=== PATIENT | male | born 1965 | race Caucasian/White ===

== ENCOUNTER 2017-06-29 23:28 | Emergency (ER) | payer OTHER, SELFPAY ==
--- NOTE | 2017-06-29 23:48 | ERPHSYRPT ---
- History of Present Illness Time Seen by Provider: 06/29/17 23:35 Historian: patient, family (DAUGHTER) Exam Limitations: no limitations Physician History: FIVE DAYS AGO PT HAD A 99.9 DEGREE FEVER. TODAY PT STARTED WITH DULL LOWER ABDOMINAL PAIN AND VOMITING X~ 20 WITH SOME BLOOD IN THE EMESIS. LAST BM WAS YESTERDAY & WNL. PT DENIES CHEST PAIN, SHORTNESS OF AIR, SWELLING. PT HAS A HX OF BLEEDING ULCERS PER DAUGHTER AND A CHRONIC NON-PRODUCTIVE COUGH FOR YEARS. Allergies/Adverse Reactions: No Known Drug Allergies Allergy (Verified 06/29/17 23:53) Home Medications: Omeprazole 20 MG [Prilosec 20 mg] 20 mg PO DAILY 06/05/13 [History] Hx Tetanus, Diphtheria Vaccination/Date Given: Yes Hx Influenza Vaccination/Date Given: No Hx Pneumococcal Vaccination/Date Given: No - Review of Systems Constitutional: Fever Respiratory: Cough Abdominal/Gastrointestinal: Abdominal Pain, Vomiting, Hematemesis All Other Systems: Reviewed and Negative - Past Medical History Pertinent Past Medical History: Yes Neurological History: No Pertinent History ENT History: No Pertinent History Cardiac History: No Pertinent History Respiratory History: No Pertinent History Endocrine Medical History: No Pertinent History Musculoskeletal History: No Pertinent History GI Medical History: Ulcer History: No Pertinent History Psycho-Social History: No Pertinent History Male Reproductive Disorders: No Pertinent History Other Medical History: ULCERS - Past Surgical History Past Surgical History: No (no abdominal surgeries) Neuro Surgical History: No Pertinent History Cardiac: No Pertinent History Respiratory: No Pertinent History Gastrointestinal: No Pertinent History Genitourinary: No Pertinent History Musculoskeletal: No Pertinent History Male Surgical History: No Pertinent History - Social History Smoking Status: Current every day smoker How long have you smoked: years Exposure to second hand smoke: No Drug Use: marijuana Patient Lives Alone: No - Nursing Vital Signs Nursing Vital Signs: Initial Vital Signs Temperature 97.8 F 06/29/17 23:41 Pulse Rate 77 06/29/17 23:41 Respiratory Rate 18 06/29/17 23:41 Blood Pressure 179/111 06/29/17 23:41 O2 Sat by Pulse Oximetry 97 06/29/17 23:41 Pain Scale Pain Intensity 2 - Physical Exam General Appearance: other (MILD MALAISE) Eye Exam: PERRL/EOMI Ears, Nose, Throat Exam: TM abnormal (L) (LEFT TM ERYTHEMATOUS), pharyngeal erythema Neck Exam: normal inspection Respiratory Exam: lungs clear Cardiovascular Exam: normal heart sounds Gastrointestinal/Abdomen Exam: soft, other (B.S. MILDLY HYPERACTIVE AND NORMOTONIC) Rectal Exam: normal rectal tone, other (DARK STOOL) Back Exam: normal range of motion Extremity Exam: normal inspection, No pedal edema Neurologic Exam: cooperative Skin Exam: warm, dry SpO2 Interpretation: normal SpO2: 97 Oxygen Delivery: Room Air - Course Nursing assessment & vital signs reviewed: Yes - CT Exams Abdomen/Pelvis CT Interpretation: Tele-radiologist Report (EVIDENCE OF INTRALUMINAL HEMORRHAGE WITHIN THE FIRST AND SECOND PORTIONS OF THE DUODENUM. CHOLELITHIASIS. LEFT RENAL CYST.) Ordered Tests: Active Orders 24 hr Category Date Time Status Clean Catch Urine Specimen STAT Care 06/29/17 23:43 Active IV Insertion STAT Care 06/29/17 23:43 Active ABDOMEN AND PELVIS W/0 CONTRAS [CT] Stat Exams 06/29/17 23:44 Taken Lactic Acid Stat Lab 06/29/17 23:43 Completed UA W/RFX UR CULTURE Stat Lab 06/29/17 23:44 Ordered Urine Triage Profile Stat Lab 06/29/17 23:44 Ordered Medication Summary Discontinued Medications Generic Name Dose Route Start Last Admin Trade Name Freq PRN Reason Stop Dose Admin Fentanyl Citrate 50 mcg 06/29/17 23:43 06/30/17 00:10 Sublimaze 100 Mcg/2 Ml IV 06/29/17 23:44 50 mcg STAT ONE Administration Fentanyl Citrate Confirm 06/29/17 23:58 Sublimaze 100 Mcg/2 Ml Administered 06/29/17 23:59 Dose 100 mcg .ROUTE .STK-MED ONE Sodium Chloride 1,000 mls @ 999 mls/hr 06/29/17 23:43 06/30/17 00:10 Sodium Chloride 0.9% 1000 Ml IV 06/30/17 00:43 999 mls/hr .Q1H1M STA Administration Sodium Chloride Confirm 06/29/17 23:58 Sodium Chloride 0.9% 1000 Ml Administered 06/29/17 23:59 Dose 1,000 mls @ ud .ROUTE .STK-MED ONE Ceftriaxone Sodium/Dextrose 1 g in 50 mls @ 100 mls/hr 06/30/17 01:14 01:36 Rocephin 1 Gm-D5w 50 Ml Bag IV 06/30/17 01:43 100 mls/hr STAT STA Administration Magnesium Sulfate/Dextrose 100 mls @ 200 mls/hr 06/30/17 01:19 06/30/17 01:36 Magnesium 1 Gm / 100 Ml D5w IV 06/30/17 01:48 200 mls/hr STAT ONE Administration Magnesium Sulfate/Dextrose Confirm 06/30/17 01:23 Magnesium 1 Gm / 100 Ml D5w Administered 06/30/17 01:24 Dose 100 mls @ ud IV .STK-MED ONE Ceftriaxone Sodium/Dextrose Confirm 06/30/17 01:24 Rocephin 1 Gm-D5w 50 Ml Bag Administered 06/30/17 01:25 Dose 1 g in 50 mls @ ud IV .STK-MED ONE Sodium Chloride Confirm 06/30/17 01:26 Sodium Chloride 0.9% 1000 Ml Administered 06/30/17 01:27 Dose 1,000 mls @ ud .ROUTE .STK-MED ONE Pantoprazole Sodium 40 mg 06/29/17 23:43 06/30/17 00:22 Protonix 40mg Tablet PO 06/29/17 23:44 Not Given STAT ONE Pantoprazole Sodium 40 mg 06/29/17 23:57 06/30/17 00:09 Protonix 40 Mg Iv IV 06/29/17 23:58 40 mg STAT ONE Administration Pantoprazole Sodium Confirm 06/29/17 23:58 Protonix 40 Mg Iv Administered 06/29/17 23:59 Dose 40 mg IV .STK-MED ONE Promethazine HCl 12.5 mg 06/29/17 23:43 06/30/17 00:09 Phenergan 25 Mg Inj IV 06/29/17 23:44 12.5 mg STAT ONE Administration Promethazine HCl Confirm 06/29/17 23:58 Phenergan 25 Mg Inj Administered 06/29/17 23:59 Dose 25 mg .ROUTE .STK-MED ONE Lab/Rad Data: Laboratory Result Diagrams 06/29/17 00:00 06/29/17 00:00 Laboratory Results 06/30/17 06/29/17 06/29/17 Range/Units 00:14 00:38 00:17 WBC (4.0-10.5) K/mm3 RBC (4.1-5.6) M/mm3 Hgb (12.5-18.0) gm/dl Hct (42-50) % MCV (78-100) fl MCH (26-32) pg MCHC (32-36) g/dl RDW (11.5-14.0) % Plt Count (150-450) K/mm3 MPV (6-9.5) fl Gran % (36.0-66.0) % Lymphocytes % (24.0-44.0) % Monocytes % (0.0-12.0) % Eosinophils % (0.00-5.0) % Basophils % (0.0-0.4) % Basophils # (0-0.4) INR (0.8-3.0) APTT (24.1-36.1) SECONDS Sodium (136-145) mEq/L Potassium (3.5-5.1) mEq/L Chloride (98-107) mEq/L Carbon Dioxide (21-32) mEq/L Anion Gap (5-15) MEQ/L BUN (9-20) mg/dL Creatinine (0.55-1.30) mg/dl Estimated GFR ML/MIN Glucose (70-110) MG/DL Lactic Acid 1.3 (0.4-2.0) Calcium (8.5-10.1) mg/dL Magnesium (1.8-2.4) mg/dL Total Bilirubin (0.2-1.0) mg/dL AST (15-37) U/L ALT (12-78) U/L Alkaline Phosphatase (46-116) U/L Serum Total Protein (6.4-8.2) gm/dL Albumin (3.4-5.0) g/dL Amylase (25-115) U/L Lipase (73-393) U/L Stool Occult Blood POSITIVE (Negative) Ethyl Alcohol (0.00-0.01) % Monoscreen (Negative) Influenza Type A Ag NEGATIVE (NEGATIVE) Influenza Type B Ag NEGATIVE (NEGATIVE) RSV (PCR) NEGATIVE (Negative) Streptococcus Screen (Negative) ABO Group Rh Factor Antibody Screen (NEGATIVE) 06/29/17 06/29/17 06/29/17 Range/Units 00:17 00:00 00:00 WBC (4.0-10.5) K/mm3 RBC (4.1-5.6) M/mm3 Hgb (12.5-18.0) gm/dl Hct (42-50) % MCV (78-100) fl MCH (26-32) pg MCHC (32-36) g/dl RDW (11.5-14.0) % Plt Count (150-450) K/mm3 MPV (6-9.5) fl Gran % (36.0-66.0) % Lymphocytes % (24.0-44.0) % Monocytes % (0.0-12.0) % Eosinophils % (0.00-5.0) % Basophils % (0.0-0.4) % Basophils # (0-0.4) INR (0.8-3.0) APTT (24.1-36.1) SECONDS Sodium (136-145) mEq/L Potassium (3.5-5.1) mEq/L Chloride (98-107) mEq/L Carbon Dioxide (21-32) mEq/L Anion Gap (5-15) MEQ/L BUN (9-20) mg/dL Creatinine (0.55-1.30) mg/dl Estimated GFR ML/MIN Glucose (70-110) MG/DL Lactic Acid (0.4-2.0) Calcium (8.5-10.1) mg/dL Magnesium (1.8-2.4) mg/dL Total Bilirubin (0.2-1.0) mg/dL AST (15-37) U/L ALT (12-78) U/L Alkaline Phosphatase (46-116) U/L Serum Total Protein (6.4-8.2) gm/dL Albumin (3.4-5.0) g/dL Amylase (25-115) U/L Lipase (73-393) U/L Stool Occult Blood (Negative) Ethyl Alcohol < 0.010 (0.00-0.01) % Monoscreen NEGATIVE (Negative) Influenza Type A Ag (NEGATIVE) Influenza Type B Ag (NEGATIVE) RSV (PCR) (Negative) Streptococcus Screen NEGATIVE (Negative) ABO Group Rh Factor Antibody Screen (NEGATIVE) 06/29/17 06/29/17 06/29/17 Range/Units 00:00 00:00 00:00 WBC (4.0-10.5) K/mm3 RBC (4.1-5.6) M/mm3 Hgb (12.5-18.0) gm/dl Hct (42-50) % MCV (78-100) fl MCH (26-32) pg MCHC (32-36) g/dl RDW (11.5-14.0) % Plt Count (150-450) K/mm3 MPV (6-9.5) fl Gran % (36.0-66.0) % Lymphocytes % (24.0-44.0) % Monocytes % (0.0-12.0) % Eosinophils % (0.00-5.0) % Basophils % (0.0-0.4) % Basophils # (0-0.4) INR 1.03 (0.8-3.0) APTT 30.1 (24.1-36.1) SECONDS Sodium (136-145) mEq/L Potassium (3.5-5.1) mEq/L Chloride (98-107) mEq/L Carbon Dioxide (21-32) mEq/L Anion Gap (5-15) MEQ/L BUN (9-20) mg/dL Creatinine (0.55-1.30) mg/dl Estimated GFR ML/MIN Glucose (70-110) MG/DL Lactic Acid (0.4-2.0) Calcium (8.5-10.1) mg/dL Magnesium 1.7 L (1.8-2.4) mg/dL Total Bilirubin (0.2-1.0) mg/dL AST (15-37) U/L ALT (12-78) U/L Alkaline Phosphatase (46-116) U/L Serum Total Protein (6.4-8.2) gm/dL Albumin (3.4-5.0) g/dL Amylase (25-115) U/L Lipase (73-393) U/L Stool Occult Blood (Negative) Ethyl Alcohol (0.00-0.01) % Monoscreen (Negative) Influenza Type A Ag (NEGATIVE) Influenza Type B Ag (NEGATIVE) RSV (PCR) (Negative) Streptococcus Screen (Negative) ABO Group O Rh Factor POSITIVE Antibody Screen NEGATIVE (NEGATIVE) 06/29/17 06/29/17 Range/Units 00:00 00:00 WBC 12.8 H (4.0-10.5) K/mm3 RBC 5.15 (4.1-5.6) M/mm3 Hgb 14.5 (12.5-18.0) gm/dl Hct 42.6 (42-50) % MCV 82.7 (78-100) fl MCH 28.2 (26-32) pg MCHC 34.0 (32-36) g/dl RDW 13.1 (11.5-14.0) % Plt Count 337 (150-450) K/mm3 MPV 10.2 H (6-9.5) fl Gran % 90.1 H (36.0-66.0) % Lymphocytes % 6.6 L (24.0-44.0) % Monocytes % 2.9 (0.0-12.0) % Eosinophils % 0.1 (0.00-5.0) % Basophils % 0.3 (0.0-0.4) % Basophils # 0.04 (0-0.4) INR (0.8-3.0) APTT (24.1-36.1) SECONDS Sodium 140 (136-145) mEq/L Potassium 4.0 (3.5-5.1) mEq/L Chloride 105 (98-107) mEq/L Carbon Dioxide 25.7 (21-32) mEq/L Anion Gap 13.4 (5-15) MEQ/L BUN 29 H (9-20) mg/dL Creatinine 1.17 (0.55-1.30) mg/dl Estimated GFR > 60 ML/MIN Glucose 162 H (70-110) MG/DL Lactic Acid (0.4-2.0) Calcium 9.2 (8.5-10.1) mg/dL Magnesium (1.8-2.4) mg/dL Total Bilirubin 0.50 (0.2-1.0) mg/dL AST 13 L (15-37) U/L ALT 25 (12-78) U/L Alkaline Phosphatase 68 (46-116) U/L Serum Total Protein 6.6 (6.4-8.2) gm/dL Albumin 3.2 L (3.4-5.0) g/dL Amylase 58 (25-115) U/L Lipase 210 (73-393) U/L Stool Occult Blood (Negative) Ethyl Alcohol (0.00-0.01) % Monoscreen (Negative) Influenza Type A Ag (NEGATIVE) Influenza Type B Ag (NEGATIVE) RSV (PCR) (Negative) Streptococcus Screen (Negative) ABO Group Rh Factor Antibody Screen (NEGATIVE) - Progress Discussed with Dr.: Other (SPOKE WITH DR TORRES([id number]) WHO ACCEPTED PT FOR TRANSFER TO [facility] AT 0147 AFTER CONSULTING THE HOSPITALIST.) - Departure Time of Disposition: 01:53 Departure Disposition: Transfer ([facility]) Clinical Impression: DUODENAL HEMORRHAGE, MILD HYPOMAGNESEMIA Condition: Stable Critical Care Time: Yes Critical Care Time(excluding separately billable procedures): 30-74 minutes Referrals: WENDI PERKINS MD [Primary Care Provider] -
[2017-06-29] MEDS ORDERED: Phenergan 25 MG INJ ONE (23:58)
[2017-06-29] MEDS ORDERED: PROTONIX 40 MG IV IV ONE (23:58)
[2017-06-29] MEDS ORDERED: Sodium Chloride 0.9% 1000 ML 1,000 ML ONE (23:58)
[2017-06-29] MEDS ORDERED: SUBLIMAZE 100 MCG/2 ML ONE (23:58)
[2017-06-30] MEDS: Phenergan 25 MG INJ IV ONE (00:09)
[2017-06-30] MEDS: PROTONIX 40 MG IV IV ONE (00:09)
[2017-06-30] MEDS: Sodium Chloride 0.9% 1000 ML 1,000 ML IV STA (00:10)
[2017-06-30] MEDS: SUBLIMAZE 100 MCG/2 ML IV ONE (00:10)
[2017-06-30] MEDS: Protonix 40MG Tablet PO ONE (00:22)
[2017-06-30 00:23] LABS: BASOPHIL % 0.3 % (0.0-0.4); Basophil (Absolute #) 0.04 (0-0.4); Eosinophil % 0.1 % (0.00-5.0); Eosinophil (Absolute #) 0.01 (0-0.5); Granulocyte Absolute (ANC) 11.57 (1.4-6.9); Granulocytes % 90.1 % (36.0-66.0); Hematocrit 42.6 % (42-50); Hemoglobin 14.5 gm/dl (12.5-18.0); Lymphocyte (Absolute #) 0.85 (1.0-4.6); Lymphocytes % 6.6 % (24.0-44.0); Mean Cell Volume 82.7 fl (78-100); Mean Corpuscular Hemoglobin 28.2 pg (26-32); Mean Platelet Volume 10.2 fl (6-9.5); Monocyte (Absolute #) 0.37 (0.0-1.3); Monocytes % 2.9 % (0.0-12.0); Platelet Count 337 K/mm3 (150-450); Red Blood Count 5.15 M/mm3 (4.1-5.6); Red Cell Distribution Width 13.1 % (11.5-14.0); White Blood Count 12.8 K/mm3 (4.0-10.5)
[2017-06-30 00:42] LABS: ALBUMIN 3.2 g/dL (3.4-5.0); ALKALINE PHOSPHATASE 68 U/L (46-116); AMYLASE 58 U/L (25-115); ANION GAP 13.4 MEQ/L (5-15); BLOOD UREA NITROGEN 29 mg/dL (9-20); CHLORIDE 105 mEq/L (98-107); Calcium 9.2 mg/dL (8.5-10.1); Carbon Dioxide 25.7 mEq/L (21-32); Creatinine 1 1.17 mg/dl (0.55-1.30); EST GLOMERULAR FILTRATION RATE > 60 ML/MIN; Glucose 162 MG/DL (70-110); INR 1.03 (0.8-3.0); LIPASE 210 U/L (73-393); SGOT/AST 13 U/L (15-37); SGPT/ALT 25 U/L (12-78); SODIUM 140 mEq/L (136-145); Total Protein 6.6 gm/dL (6.4-8.2)
[2017-06-30 00:45] LABS: PTT 30.1 SECONDS (24.1-36.1)
[2017-06-30 01:06] LABS: ABO TYPING O; Antibody Screen NEGATIVE (NEGATIVE); RH TYPING POSITIVE
[2017-06-30] MEDS ORDERED: Magnesium 1 Gm / 100 Ml D5W*** 100 ML IV ONE (01:23)
[2017-06-30] MEDS ORDERED: ROCEPHIN 1 Gm-D5w 50 ml Bag** 1 G/50 ML IVPB IV ONE (01:24)
[2017-06-30] MEDS ORDERED: Sodium Chloride 0.9% 1000 ML 1,000 ML ONE (01:26)
[2017-06-30 01:29] LABS: INFLUENZA A NEGATIVE (NEGATIVE); INFLUENZA B NEGATIVE (NEGATIVE); RESPIRATORY SYNCTIAL VIRUS NEGATIVE (Negative)
[2017-06-30] MEDS: ROCEPHIN 1 Gm-D5w 50 ml Bag** 1 G/50 ML IVPB IV STA (01:36)
[2017-06-30] MEDS: Magnesium 1 Gm / 100 Ml D5W*** 100 ML IV ONE (01:36)
[2017-06-30 02:25] VITALS: BP 172/103
[2017-06-30 03:42] VITALS: PULSE 68; O2SAT 99
--- NOTE | 2017-06-30 09:00 | XRAY ---
Indication: Abdominal pain and vomiting blood 2 days. Positive occult stool. Multiple contiguous axial images obtained through the abdomen and pelvis without contrast as ordered. Comparison: June 05, 2013. Lung bases demonstrate minimal right base dependent atelectasis. No infiltrate or effusion. Heart is not enlarged. Noncontrasted stomach and bowel loops appear nonobstructed. Proximal/descending duodenum now mildly distended with wall thickening and subtle intraluminal dense material probable duodenitis with intraluminal blood. No free fluid/air. Normal appendix. Stable left renal cyst. New tiny 2 mm gallstone. Remaining liver, gallbladder, pancreas, spleen, adrenal glands, kidneys, ureters, bladder, and aorta appear unremarkable for noncontrast exam. Osseous structures intact again with minimal degenerative changes throughout the spine. Impression: 1. New CT findings favoring duodenitis with intraluminal blood. No free fluid/air. 2. New tiny gallstone. 3. Stable left renal cyst. Comment: Preliminary interpretation was made by C. No discrepancy. CTDI 23.69
== END 2017-06-30 01:53 | disposition short-term general hospital (02) ==
LOC: ED 23:28
DX: K92.2 Gastrointestinal hemorrhage, unspecified (principal); E83.42 Hypomagnesemia; R53.81 Other malaise; Z72.0 Tobacco use; Z79.899 Other long term (current) drug therapy
CPT/HCPCS: 36000; 36415; 74176; 80053; 82150; 82272; 83605; 83690; 83735; 85025; 85610; 85730; 86308; 86850; 86900; 86901; 87040; 87070; 87430; 87631; 96360; 96365; 96374; 96375; 99284; G0480; J0696; J2550; J3010; J3475

== ENCOUNTER 2018-03-15 04:47 | Observation (INO) | payer OTHER ==
[2018-03-15] MEDS ORDERED: DUONEB 0.5-3 MG/3 ml Neb IH ONE ×2 (04:56→05:03)
[2018-03-15] MEDS ORDERED: solu-MEDROL 125 MG IV ONE (04:56)
[2018-03-15] MEDS ORDERED: Sodium Chloride 0.9% 1000 ML 1,000 ML ONE (05:10)
[2018-03-15] MEDS ORDERED: solu-MEDROL 125 MG ONE (05:10)
[2018-03-15] MEDS: Sodium Chloride 0.9% 1000 ML 1,000 ML IV SCH ×3 (05:15→21:47)
[2018-03-15] MEDS ORDERED: Ativan 2 MG/1 ML VIAL ONE (05:31)
[2018-03-15 05:32] LABS: BASOPHIL % 0.8 % (0.0-0.4); Basophil (Absolute #) 0.07 (0-0.4); Eosinophil % 6.2 % (0.00-5.0); Eosinophil (Absolute #) 0.56 (0-0.5); Granulocyte Absolute (ANC) 5.78 (1.4-6.9); Granulocytes % 64.4 % (36.0-66.0); Hematocrit 35.1 % (42-50); Hemoglobin 11.6 gm/dl (12.5-18.0); Lymphocyte (Absolute #) 1.98 (1.0-4.6); Mean Corpuscular Hemoglobin 25.1 pg (26-32); Mean Platelet Volume 10.1 fl (6-9.5); Monocyte (Absolute #) 0.59 (0.0-1.3); Monocytes % 6.6 % (0.0-12.0); Platelet Count 259 K/mm3 (150-450); Red Blood Count 4.62 M/mm3 (4.1-5.6); Red Cell Distribution Width 16.2 % (11.5-14.0)
[2018-03-15 06:12] LABS: ALBUMIN 3.3 g/dL (3.5-5.0); ALKALINE PHOSPHATASE 48 U/L (38-126); ANION GAP 14.4 MEQ/L (5-15); BLOOD UREA NITROGEN 16 mg/dL (9-20); CHLORIDE 104 mmol/L (98-107); Calcium 8.9 mg/dL (8.4-10.2); Carbon Dioxide 20 mmol/L (22-30); Creatinine 1 1.03 mg/dL (0.66-1.25); Glucose 127 mg/dL (74-106); Potassium 3.4 mmol/L (3.5-5.1); SGOT/AST 26 U/L (17-59); SGPT/ALT 22 U/L (0-50); SODIUM 135 mmol/L (137-145); Total Protein 5.7 g/dL (6.3-8.2)
[2018-03-15 06:21] LABS: Appearance CLEAR (CLEAR); Bilirubin NEGATIVE (NEGATIVE); Blood NEGATIVE Ery/ul (0-5); Glucose NEGATIVE (NEGATIVE); Ketones TRACE (NEGATIVE); Leukocyte Esterase NEGATIVE (NEGATIVE); Nitrite NEGATIVE (NEGATIVE); Protein,Urine Dip NEGATIVE (Negative); Specific Gravity 1.008 (1.005-1.025); Urobilinogen 4 mg/dL (0-1)
[2018-03-15 06:21] LABS: TROPONIN < 0.012 ng/mL (0.000-0.034)
[2018-03-15 06:23] LABS: Barbiturate,Urine NEGATIVE (NEGATIVE); Benzodiazepine,Urine NEGATIVE (NEGATIVE); Cocaine,Urine NEGATIVE (NEGATIVE); Methadone,Urine NEGATIVE (NEGATIVE); Opiate,Urine NEGATIVE (NEGATIVE); PCP,Urine NEGATIVE (NEGATIVE); THC,Urine POSITIVE (NEGATIVE)
[2018-03-15] MEDS ORDERED: Ativan 2 MG/1 ML VIAL IV ONE (06:50)
[2018-03-15] MEDS ORDERED: K-LYTE 25 MEQ PO ONE (06:50)
--- NOTE | 2018-03-15 06:50 | ERPHSYRPT ---
- History of Present Illness Source: patient Exam Limitations: no limitations Patient Subjective Stated Complaint: pt states he has been short of breath tonight. Triage Nursing Assessment: pt alert and oriented x4, answers questions approp. slurred speech noted. pt short of breath, taking deep breaths and frequent coughing exhalation noted. lungs clear bilat. pt kicking legs frequ[place]ty land states he is not able to keeps legs still. Timing/Duration: today Activities at Onset: none Possible Cause: frequent episodes Associated Symptoms: muscle spasms feet Hx Tetanus, Diphtheria Vaccination/Date Given: Yes Hx Influenza Vaccination/Date Given: No Hx Pneumococcal Vaccination/Date Given: No Immunizations Up to Date: Yes - History of Present Illness Time Seen by Provider: 03/15/18 06:45 Physician History: pt states he has been short of breath tonight, started early night. kicking legs frequ[place]ty land states he is not able to keeps legs still. (SUHAIL, BROWN) Allergies/Adverse Reactions: No Known Drug Allergies Allergy (Verified 03/15/18 05:17) Home Medications: Omeprazole 20 MG [Prilosec 20 mg] 20 mg PO DAILY 06/05/13 [History] - Review of Systems Constitutional: No Fever, No Chills Eyes: No Symptoms Ears, Nose, & Throat: No Symptoms Respiratory: Dyspnea, Wheezing, No Cough Cardiac: No Chest Pain, No Edema, No Syncope Abdominal/Gastrointestinal: No Abdominal Pain, No Nausea, No Vomiting, No Diarrhea Genitourinary Symptoms: No Dysuria Musculoskeletal: No Back Pain, No Neck Pain Skin: No Rash Neurological: No Dizziness, No Focal Weakness, No Sensory Changes Psychological: No Symptoms Endocrine: No Symptoms All Other Systems: Reviewed and Negative - Past Medical History Pertinent Past Medical History: Yes Neurological History: No Pertinent History ENT History: No Pertinent History Cardiac History: No Pertinent History Respiratory History: No Pertinent History Endocrine Medical History: No Pertinent History Musculoskeletal History: No Pertinent History GI Medical History: Ulcer History: No Pertinent History Psycho-Social History: No Pertinent History Male Reproductive Disorders: No Pertinent History Other Medical History: ULCERS - Past Surgical History Past Surgical History: No Neuro Surgical History: No Pertinent History Cardiac: No Pertinent History Respiratory: No Pertinent History Gastrointestinal: No Pertinent History Genitourinary: No Pertinent History Musculoskeletal: No Pertinent History Male Surgical History: No Pertinent History - Social History Smoking Status: Current every day smoker How long have you smoked: years Exposure to second hand smoke: No Drug Use: marijuana Patient Lives Alone: Yes - Physical Exam General Appearance: no apparent distress, alert Eye Exam: PERRL/EOMI Neck Exam: normal inspection, supple Respiratory Exam: diminished breath sounds, wheezing Cardiovascular/Chest Exam: normal heart sounds, regular rate/rhythm Abdominal/Gastrointestinal Exam: soft, No tenderness, No distention, No mass Extremity Exam: non-tender, normal range of motion, normal inspection, no calf tenderness, no pedal edema Neurologic Exam: alert, oriented x 3, cooperative, 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, sensation nml, No motor deficits Skin Exam: normal color, warm, No dry SpO2 Interpretation: borderline oxygenation SpO2: 94 Oxygen Delivery: Room Air - Nursing Vital Signs Nursing Vital Signs: Initial Vital Signs Temperature 97.6 F 03/15/18 04:50 Pulse Rate 95 H 03/15/18 04:50 Respiratory Rate 22 03/15/18 04:50 Blood Pressure 109/79 03/15/18 04:50 O2 Sat by Pulse Oximetry 99 03/15/18 04:50 Pain Scale Pain Intensity 0 - Course Nursing assessment & vital signs reviewed: Yes EKG Interpreted by Me: Sinus Rhythm - Radiology Exams Chest X-ray Interpretation: Reviewed by me (COPD changes) Ordered Tests: Active Orders 24 hr Category Date Time Status CO2 Monitoring STAT Care 03/15/18 04:56 Active Assessor STAT Care 03/15/18 04:57 Active Cath for Specimen-Straight STAT Care 03/15/18 05:50 Active EKG-ER Only STAT Care 03/15/18 04:56 Active Oxygen-ED Only NASAL CANNULA 2 lpm Care 03/15/18 04:56 Active CHEST 1 VIEW (PORTABLE) Stat Exams 03/15/18 04:57 Taken HEAD WITHOUT CONTRAST [CT] Stat Exams 03/15/18 08:16 Taken BLOOD CULTURE Stat Lab 03/15/18 10:04 Ordered CBC W DIFF Stat Lab 03/15/18 04:56 Completed CMP Stat Lab 03/15/18 04:56 Completed ETHYL ALCOHOL Stat Lab 03/15/18 04:56 Completed TROPONIN Stat Lab 03/15/18 04:56 Completed UA W/RFX UR CULTURE Stat Lab 03/15/18 05:46 Completed Urine Triage Profile Stat Lab 03/15/18 05:46 Completed Respiratory Therapy Assessment DAILY RT 03/15/18 05:15 Active Medication Summary Generic Name Dose Route Start Last Admin Trade Name Freq PRN Reason Stop Dose Admin Sodium Chloride 1,000 mls @ 100 mls/hr 03/15/18 05:00 03/15/18 05:15 Sodium Chloride 0.9% 1000 Ml IV 04/14/18 04:59 100 mls/hr .Q10H KATI Administration Levofloxacin/Dextrose 500 mg in 100 mls @ 100 mls/hr 03/15/18 10:05 03/15/18 10:13 Levofloxacin 500mg/100ml D5w IV 03/15/18 11:04 100 mls/hr STAT STA 100 mls/hr Administration Discontinued Medications Generic Name Dose Route Start Last Admin Trade Name Freq PRN Reason Stop Dose Admin Albuterol/Ipratropium 3 ml 03/15/18 04:56 03/15/18 05:06 Duoneb 0.5-3 Mg/3 Ml Neb IH 03/15/18 04:57 3 ml STAT ONE Administration Albuterol/Ipratropium Confirm 03/15/18 05:03 Duoneb 0.5-3 Mg/3 Ml Neb Administered 03/15/18 05:04 Dose 3 ml IH .STK-MED ONE Levofloxacin/Dextrose Confirm 03/15/18 10:12 Levofloxacin 500mg/100ml D5w Administered 03/15/18 10:13 Dose 500 mg in 100 mls @ ud IV .STK-MED ONE Lorazepam Confirm 03/15/18 05:31 Ativan 2 Mg/1 Ml Vial Administered 03/15/18 05:32 Dose 2 mg .ROUTE .STK-MED ONE Lorazepam 2 mg 03/15/18 06:50 03/15/18 05:30 Ativan 2 Mg/1 Ml Vial IV 03/15/18 06:51 2 mg STAT ONE Administration Methylprednisolone Sodium Succinate 80 mg 03/15/18 04:56 03/15/18 05:11 Solu-Medrol 125 Mg IV 03/15/18 04:57 80 mg STAT ONE Administration Methylprednisolone Sodium Succinate Confirm 03/15/18 05:10 Solu-Medrol 125 Mg Administered 03/15/18 05:11 Dose 125 mg .ROUTE .STK-MED ONE Potassium Bicarbonate 25 meq 03/15/18 06:50 03/15/18 06:54 K-Lyte 25 Meq PO 03/15/18 06:51 25 meq STAT ONE Administration Potassium Bicarbonate Confirm 03/15/18 06:52 K-Lyte 25 Meq Administered 03/15/18 06:53 Dose 25 meq .ROUTE .STK-MED ONE Lab/Rad Data: Laboratory Result Diagrams 03/15/18 04:56 03/15/18 04:56 Laboratory Results 03/15/18 03/15/18 03/15/18 Range/Units 05:46 05:46 04:56 WBC (4.0-10.5) K/mm3 RBC (4.1-5.6) M/mm3 Hgb (12.5-18.0) gm/dl Hct (42-50) % MCV (78-100) fl MCH (26-32) pg MCHC (32-36) g/dl RDW (11.5-14.0) % Plt Count (150-450) K/mm3 MPV (6-9.5) fl Gran % (36.0-66.0) % Eos # (Auto) (0-0.5) Absolute Lymphs (auto) (1.0-4.6) Absolute Monos (auto) (0.0-1.3) Lymphocytes % (24.0-44.0) % Monocytes % (0.0-12.0) % Eosinophils % (0.00-5.0) % Basophils % (0.0-0.4) % Absolute Granulocytes (1.4-6.9) Basophils # (0-0.4) Sodium (137-145) mmol/L Potassium (3.5-5.1) mmol/L Chloride (98-107) mmol/L Carbon Dioxide (22-30) mmol/L Anion Gap (5-15) MEQ/L BUN (9-20) mg/dL Creatinine (0.66-1.25) mg/dL Estimated GFR ML/MIN Glucose (74-106) mg/dL Calcium (8.4-10.2) mg/dL Total Bilirubin (0.2-1.3) mg/dL AST (17-59) U/L ALT (0-50) U/L Alkaline Phosphatase (38-126) U/L Troponin I (0.000-0.034) ng/mL Serum Total Protein (6.3-8.2) g/dL Albumin (3.5-5.0) g/dL Urine Color YELLOW (YELLOW) Urine Appearance CLEAR (CLEAR) Urine pH 6.0 (5-6) Ur Specific [place] 1.008 (1.005-1.025) Urine Protein NEGATIVE (Negative) Urine Ketones TRACE (NEGATIVE) Urine Blood NEGATIVE (0-5) Valentin/ul Urine Nitrite NEGATIVE (NEGATIVE) Urine Bilirubin NEGATIVE (NEGATIVE) Urine Urobilinogen 4 (0-1) mg/dL Ur Leukocyte Esterase NEGATIVE (NEGATIVE) Urine WBC (Auto) 0-2 (0-5) /HPF Urine RBC (Auto) NONE (0-2) /HPF Urine Mucus (Auto) SLIGHT (NEGATIVE) /HPF Urine Culture Reflexed NO (NO) Urine Glucose NEGATIVE (NEGATIVE) mg/dL Urine Opiates Level NEGATIVE (NEGATIVE) Ur Methadone NEGATIVE (NEGATIVE) Urine Barbiturates NEGATIVE (NEGATIVE) Ur Phencyclidine (PCP) NEGATIVE (NEGATIVE) Urine Amphetamine POSITIVE (NEGATIVE) U Benzodiazepine Level NEGATIVE (NEGATIVE) Urine Cocaine NEGATIVE (NEGATIVE) Urine Marijuana (THC) POSITIVE (NEGATIVE) Ethyl Alcohol < 10 (0-10) mg/dL 03/15/18 03/15/18 Range/Units 04:56 04:56 WBC 9.0 (4.0-10.5) K/mm3 RBC 4.62 (4.1-5.6) M/mm3 Hgb 11.6 L (12.5-18.0) gm/dl Hct 35.1 L (42-50) % MCV 76.0 L (78-100) fl MCH 25.1 L (26-32) pg MCHC 33.0 (32-36) g/dl RDW 16.2 H (11.5-14.0) % Plt Count 259 (150-450) K/mm3 MPV 10.1 H (6-9.5) fl Gran % 64.4 (36.0-66.0) % Eos # (Auto) 0.56 H (0-0.5) Absolute Lymphs (auto) 1.98 (1.0-4.6) Absolute Monos (auto) 0.59 (0.0-1.3) Lymphocytes % 22.0 L (24.0-44.0) % Monocytes % 6.6 (0.0-12.0) % Eosinophils % 6.2 H (0.00-5.0) % Basophils % 0.8 (0.0-0.4) % Absolute Granulocytes 5.78 (1.4-6.9) Basophils # 0.07 (0-0.4) Sodium 135 L (137-145) mmol/L Potassium 3.4 L (3.5-5.1) mmol/L Chloride 104 (98-107) mmol/L Carbon Dioxide 20 L (22-30) mmol/L Anion Gap 14.4 (5-15) MEQ/L BUN 16 (9-20) mg/dL Creatinine 1.03 (0.66-1.25) mg/dL Estimated GFR > 60.0 ML/MIN Glucose 127 H (74-106) mg/dL Calcium 8.9 (8.4-10.2) mg/dL Total Bilirubin 0.60 (0.2-1.3) mg/dL AST 26 (17-59) U/L ALT 22 (0-50) U/L Alkaline Phosphatase 48 (38-126) U/L Troponin I < 0.012 (0.000-0.034) ng/mL Serum Total Protein 5.7 L (6.3-8.2) g/dL Albumin 3.3 L (3.5-5.0) g/dL Urine Color (YELLOW) Urine Appearance (CLEAR) Urine pH (5-6) Ur Specific [place] (1.005-1.025) Urine Protein (Negative) Urine Ketones (NEGATIVE) Urine Blood (0-5) Valentin/ul Urine Nitrite (NEGATIVE) Urine Bilirubin (NEGATIVE) Urine Urobilinogen (0-1) mg/dL Ur Leukocyte Esterase (NEGATIVE) Urine WBC (Auto) (0-5) /HPF Urine RBC (Auto) (0-2) /HPF Urine Mucus (Auto) (NEGATIVE) /HPF Urine Culture Reflexed (NO) Urine Glucose (NEGATIVE) mg/dL Urine Opiates Level (NEGATIVE) Ur Methadone (NEGATIVE) Urine Barbiturates (NEGATIVE) Ur Phencyclidine (PCP) (NEGATIVE) Urine Amphetamine (NEGATIVE) U Benzodiazepine Level (NEGATIVE) Urine Cocaine (NEGATIVE) Urine Marijuana (THC) (NEGATIVE) Ethyl Alcohol (0-10) mg/dL - Progress Progress: improved Air Movement: good Blood Culture(s) Obtained: No Antibiotics given: No Counseled pt/family regarding: lab results, diagnosis, need for follow-up, rad results - Departure Time of Disposition: 06:47 Departure Disposition: Home Critical Care Time: Yes Critical Care Time(excluding separately billable procedures): 30-74 minutes - Departure Clinical Impression: Bronchitis, Leg cramping, Hypokalemia Condition: Stable Referrals: WENDI PERKINS MD [Primary Care Provider] - Instructions: Chronic Obstructive Pulmonary Disease, Shortness of Breath ( Dyspnea) (DC) Additional Instructions: JIE VILLA was seen on 03/15/18 n the Emergency Room. At that time you were treated for an emergent condition, during your visit Laboratory, Radiology and/ or other procedures may have been ordered. It is very important that you follow- up with your Primary Care Physician WENDI PERKINS within the next 24-48 hours to review your Emergency Room visit and the final results of testing that was ordered. Some test results such as Urine Cultures, Blood Cultures, and other cultures if ordered will not be finalized for 24-48 hours. If you do not have a Primary Care Provider please call the medical records department at [phone] ext [phone] to obtain a copy of your results or you may sign into our patient portal to obtain these results by visiting us @ [email or web address] and completing the following steps: 1. Click on the Patient Portal link 2. Click the Patient Self Enrollment Link to complete the enrollment form and entering your 3. Once the enrollment form is completed you will receive an email with a temporary ID and password at the email address you provided. 4. Next choose a user name and password. Your user name must be at least 4 characters long and your password must be at least 4 characters long. 5. Choose a security question from the list and provide your answer to the question. If you already have signed into the Health Portal you may access your Health Care Information 09/12 by the following steps: 1. Login to our website @ [email or web address] 2. Enter your original user name and password. FAQS The [facility] Health Portal is an online tool that contains your Lab Results, Radiology Reports, Visit History, Discharge Instructions and Health Summary Lab and Radiology Results will not be available for 72 hours on the portal. The Portal is a secure site, passwords are encryted and URLs are re-written so they cannot be copied and pasted. You and authorized family members are the only ones who can access your Portal. Also there is a timeout feature that protects your information if you leave the Portal page open. If you have technical difficulty please use the Contact Us link on the page this will allow you to submit any questions you have regarding the Portal or you may contact the Medical Record Department at [phone] ext [phone]. ADDENUM: 1000 GENERAL: APPEARS LETHARGIC, INAPPROPRIATE CONVERSATION HEENT PUPILS EQUAL AND REACTIVE CHEST: CLEAR BREATH SOUNDS NO WHEEZES OR RHONCHI HEART: REGULAR NORMAL S! S2 ABDOMEN: SOFT ACTIVE BOWEL SOUNDS NONTENDER NEURO: LETHARGY, UNABLE TO EVALUATE MENTAL STATUS HEAD CT: NO ACUTE INTRACRANIAL ABNORMALITY SEEN DISCUSSED WITH DR PERKINS AT 1015 FOR OBSERVATION DIAGNOSIS: 1) ALTERED MENTAL STATUS 2) POLYSUBSTANCE ABUSE 3) EXACERBATION COPD DR ROYAL DRISCOLL Prescriptions: Amoxicillin 500 mg PO TID #30 tablet Potassium Chloride [K-Dur] 10 meq PO DAILY #30 tab.er.prt Methylprednisolone Packet [Medrol Dosepack] 4 mg PO UD #30 packet
[2018-03-15] MEDS ORDERED: K-LYTE 25 MEQ ONE (06:52)
[2018-03-15 06:55] LABS: Amphetamine,Urine POSITIVE (NEGATIVE)
[2018-03-15] MEDS ORDERED: Levofloxacin 500MG/100ML D5W 500 MG/100 ML BAG IV STA (10:05)
[2018-03-15] MEDS ORDERED: Levofloxacin 500MG/100ML D5W 500 MG/100 ML BAG IV ONE (10:12)
--- NOTE | 2018-03-15 10:21 | XRAY ---
Indication: Short of breath. Lower extremity pain. Comparison: None Portable chest clear with a few incidental calcified granulomas. Heart and mediastinal structures within normal limits. Bony thorax intact with mild degenerative changes and left humeral neck enchondroma. Impression: Nonacute chest with chronic features.
[2018-03-15] MEDS ORDERED: TYLENOL 325 MG PO PRN (10:32)
[2018-03-15] MEDS ORDERED: DUONEB 0.5-3 MG/3 ml Neb IH SCH (11:00)
--- NOTE | 2018-03-15 12:40 | XRAY ---
Indication: Altered mental status. Positive for meth and marijuana. Multiple contiguous axial images obtained through the head without contrast. Comparison: None Several images are slightly degraded by motion artifact. No gross acute intracranial hemorrhage, abnormal extra-axial fluid question, or mass effect. Fourth ventricle is midline without hydrocephalus. Bony calvarium intact. Mild mucosal thickening of both maxillary sinuses without fluid leveling. Mastoid air cells are clear. Impression: Motion artifact. No gross acute intracranial abnormalities. Incidental paranasal sinus disease. Comment: Preliminary interpretation was made by [facility]. No discrepancy. CTDI 61.17
[2018-03-15] MEDS: solu-MEDROL 125 MG IV SCH ×2 (13:36→21:43)
[2018-03-15] MEDS ORDERED: Nicoderm CQ 21 MG TOP SCH (17:15)
[2018-03-16] MEDS: solu-MEDROL 125 MG IV SCH (05:39)
[2018-03-16] MEDS ORDERED: Tums EX 750 MG PO PRN (05:44)
--- NOTE | 2018-03-16 08:22 | PCM.HP ---
History of Present Illness - Chief Complaint Chief Complaint: Shortness of Breath History of Present Illness: is a 52 year old male who apparently presented to the ER yesterday complaining of a nonproductive cough and shortness of breath, his workup was essentially negative other than his drug screen was positive for marijuana and amphetamines, he was planned to be discharged initially and after sign out I was called by ER doctor stating he was very confused and tried to urinate in the CT room and he felt he was unable to be discharged. Jeffrey is alert, he does have some slow and drawn out speech which is his baseline. He admits to marijuana use on questioning today but denies any meth/amphetamine use. - Review of Systems Constitutional: No Fever, No Chills Respiratory: Cough Cardiac: No Chest Pain, No Edema, No Syncope Psychological: Drug Abuse, No Suicidal Ideations Endocrine: No Symptoms All Other Systems: Reviewed and Negative Medications & Allergies Home Medications: Home Medication List Omeprazole 20 MG [Prilosec 20 mg] 20 mg PO DAILY 06/05/13 [History Confirmed ] Lisinopril [Zestril] 40 mg PO DAILY 03/15/18 [History Confirmed 03/15/18] Allergies/Adverse Reactions: Allergies Allergy/AdvReac Type Severity Reaction Status Date / Time No Known Drug Allergies Allergy Verified 03/15/18 11:26 - Past Medical History Past Medical History: Yes Neurological History: No Pertinent History ENT History: No Pertinent History Cardiac History: No Pertinent History Respiratory History: COPD Endocrine Medical History: No Pertinent History Musculoskelatal History: No Pertinent History GI Medical History: Ulcer History: No Pertinent History Pyscho-Social History: No Pertinent History Male Reproductive Disorders: No Pertinent History Comment: ULCERS - Past Surgical History Past Surgical History: No Neuro Surgical History: No Pertinent History Cardiac History: No Pertinent History Respiratory Surgery: No Pertinent History GI Surgical History: No Pertinent History Genitourinary Surgical Hx: No Pertinent History Musculskeletal Surgical Hx: No Pertinent History Male Surgical History: No Pertinent History - Social History Smoking Status: Heavy tobacco smoker How long have you smoked: years Exposure to second hand smoke: No Alcohol: Rarely Drug Use: marijuana, methamphetamines - Physical Exam Vital Signs: Vital Signs - 24 hr Temp Pulse Resp BP Pulse Ox 03/16/18 07:52 97.8 F 71 17 134/76 99 03/16/18 04:30 98.1 F 83 18 134/80 97 03/15/18 23:33 98.7 F 76 22 109/59 97 03/15/18 19:48 98.2 F 99 H 20 134/92 97 03/15/18 19:25 90 18 97 03/15/18 16:55 97.4 F 03/15/18 16:00 69 14 113/76 100 03/15/18 15:00 74 20 111/84 94 L 03/15/18 14:00 70 16 127/79 97 03/15/18 13:00 78 19 127/79 97 03/15/18 12:00 78 16 115/73 98 03/15/18 11:43 85 20 94 L 03/15/18 11:21 75 18 104/77 95 03/15/18 10:39 97.8 F 77 18 124/74 92 L 03/15/18 10:21 97.9 F 68 18 124/74 92 L General Appearance: no apparent distress, alert Neurologic Exam: alert, cooperative Eye Exam: PERRL/EOMI, eyes nml inspection Respiratory Exam: normal breath sounds, lungs clear, No respiratory distress Cardiovascular Exam: regular rate/rhythm, normal heart sounds, normal peripheral pulses Gastrointestinal/Abdomen Exam: soft, normal bowel sounds, No tenderness, No mass Extremity Exam: normal inspection, normal range of motion, pelvis stable Skin Exam: normal color, warm, dry, No rash Results - Radiology Impressions Radiology Exams & Impressions: Radiology Procedures Category Date Time Status CHEST 1 VIEW (PORTABLE) Stat Exams 03/15/18 04:57 Completed HEAD WITHOUT CONTRAST [CT] Stat Exams 03/15/18 08:16 Completed - Other Procedures and Tests Respiratory Therapy 03/15/18 10:33 Oxygen NASAL CANNULA 2 lpm 03/15/18 11:43 Respiratory Therapy Assessment DAILY Assessment/Plan (1) Bronchitis Current Visit: Yes Status: Acute Assessment & Plan: on levaquin, will continue when discharged with albuterol inhaler Code(s): J40 - BRONCHITIS, NOT SPECIFIED ACUTE OR CHRONIC (2) Altered mental status Current Visit: Yes Status: Acute Assessment & Plan: head ct negative, appears to be from substance abuse. will get psych consult today Code(s): R41.82 - ALTERED MENTAL STATUS, UNSPECIFIED (3) Drug abuse Current Visit: Yes Status: Acute Code(s): F19.10 - OTHER PSYCHOACTIVE SUBSTANCE ABUSE, UNCOMPLICATED (4) Hypokalemia Current Visit: Yes Status: Acute Code(s): E87.6 - HYPOKALEMIA
[2018-03-16] MEDS ORDERED: Zestril 20 MG PO SCH (10:00)
[2018-03-16] MEDS ORDERED: Nicoderm CQ 21 MG TOP SCH (10:00)
[2018-03-16] MEDS ORDERED: NON-FORMULARY ITEM (Omeprazole 20 Mg [Prilosec 20 Mg] 20 MG) PO SCH (10:00)
[2018-03-16] MEDS ORDERED: Levofloxacin 500MG/100ML D5W 500 MG/100 ML BAG IV SCH (10:00)
[2018-03-16] MEDS ORDERED: Protonix 40MG Tablet PO SCH (10:00)
[2018-03-16] MEDS ORDERED: NON-FORMULARY ITEM (Lisinopril [Zestril] 40 MG) PO SCH (10:00)
[2018-03-16 10:10] LABS: ANION GAP 12.4 MEQ/L (5-15); BLOOD UREA NITROGEN 21 mg/dL (9-20); CHLORIDE 108 mmol/L (98-107); Calcium 10.1 mg/dL (8.4-10.2); Carbon Dioxide 26 mmol/L (22-30); Creatinine 1 0.99 mg/dL (0.66-1.25); Glucose 144 mg/dL (74-106); Potassium 4.9 mmol/L (3.5-5.1); SODIUM 142 mmol/L (137-145)
[2018-03-16 11:29] VITALS: O2SAT 96
[2018-03-16 13:01] VITALS: BP 158/89; PULSE 67
== END 2018-03-16 12:50 | disposition home or self-care (01) ==
LOC: ED 04:47 → ICU 11:05 → MED SURG 16:35
PROVIDERS: ADMIT Family Medicine; ATTEND Family Medicine
DX: J40 Bronchitis, not specified as acute or chronic (principal); R41.82 Altered mental status, unspecified; F19.10 Other psychoactive substance abuse, uncomplicated; E87.6 Hypokalemia; J44.9 Chronic obstructive pulmonary disease, unspecified
CPT/HCPCS: 36000; 36415; 70450; 71045; 80048; 80053; 80307; 81001; 84484; 85025; 87040; 90791; 93005; 93041; 93268; 94640; 94770; 96360; 96361; 96365; 96374; 96375; 99285; P9612; J1956; J2060; J2930; Q3014; A9270-GY; G0378; G0480

== ENCOUNTER 2020-06-13 21:00 | Observation (INO) | payer OTHER ==
--- NOTE | 2020-06-13 21:29 | ERPHSYRPT ---
- History of Present Illness Time Seen by Provider: 06/13/20 21:12 Source: patient Exam Limitations: no limitations Patient Subjective Stated Complaint: pt states he has been having chest pain, lt arm and shoulder pain, and groin pain while at work today. unsure how long pain has been going on other than today Triage Nursing Assessment: pt alert and oriented, answers questions approp. poor historian with medical hx. pt ambulatory with steady gait noted. respirations nonlabored. occasional moist cough noted. skin warm and dry. 2+ edema noted to lt lower leg and ankle. pedal pusles and cap refill wnl. Physician History: Patient is a 54-year-old male presents to our ED with complaints of chest pain left arm pain left shoulder pain and groin pain has been going on for couple days. Patient states symptoms occur while he is at work. No associated nausea vomiting or diaphoresis. No dizziness. No fever. No trauma. Patient currently asymptomatic. Patient voices no other complaints concerns at this time. Timing/Duration: day(s) (2 days) Severity: moderate Modifying Factors: Improves With: nothing Associated Symptoms: denies symptoms Allergies/Adverse Reactions: No Known Drug Allergies Allergy (Verified 06/13/20 21:24) Home Medications: Omeprazole 20 MG [Prilosec 20 mg] 20 mg PO DAILY 06/05/13 [History] lisinopriL [Zestril] 40 mg PO DAILY 03/15/18 [History] Duloxetine HCl 30 mg [Cymbalta 30 MG Capsule] 0 mg PO DAILY 06/13/20 [History] Hx Tetanus, Diphtheria Vaccination/Date Given: Yes Hx Influenza Vaccination/Date Given: No Hx Pneumococcal Vaccination/Date Given: No Immunizations Up to Date: Yes Travel Risk - International Travel Have you traveled outside of the country in past 3 weeks: No - Coronavirus Screening Are you exhibiting any of the following symptoms?: Yes Symptoms: Fever, Headaches/Body Aches/Fatigue Close contact with a COVID-19 positive Pt in past 14-21 Days: No - Review of Systems Constitutional: No Symptoms, No Fever, No Chills Eyes: No Symptoms Ears, Nose, & Throat: No Symptoms Respiratory: No Symptoms, No Cough, No Dyspnea Cardiac: No Symptoms, No Chest Pain, No Edema, No Syncope Abdominal/Gastrointestinal: No Symptoms, No Abdominal Pain, No Nausea, No Vomiting, No Diarrhea Genitourinary Symptoms: No Symptoms, No Dysuria Musculoskeletal: No Symptoms, No Back Pain, No Neck Pain Skin: No Symptoms, No Rash Neurological: No Symptoms, No Dizziness, No Focal Weakness, No Sensory Changes Psychological: No Symptoms Endocrine: No Symptoms Hematologic/Lymphatic: No Symptoms Immunological/Allergic: No Symptoms All Other Systems: Reviewed and Negative - Past Medical History Pertinent Past Medical History: Yes Neurological History: No Pertinent History ENT History: No Pertinent History Cardiac History: Coronary Artery Disease, High Cholesterol, Hypertension Respiratory History: No Pertinent History Endocrine Medical History: No Pertinent History Musculoskeletal History: No Pertinent History GI Medical History: Ulcer History: No Pertinent History Psycho-Social History: No Pertinent History Male Reproductive Disorders: No Pertinent History Other Medical History: Depression, coronary atherosclerosis, GERD, gastric ulcer (11/24/17), current smoker - Past Surgical History Past Surgical History: No Neuro Surgical History: No Pertinent History Cardiac: No Pertinent History Respiratory: No Pertinent History Gastrointestinal: No Pertinent History Genitourinary: No Pertinent History Musculoskeletal: No Pertinent History Male Surgical History: No Pertinent History - Social History Smoking Status: Current every day smoker How long have you smoked: years Exposure to second hand smoke: Yes Drug Use: marijuana, methamphetamines Patient Lives Alone: Yes - Nursing Vital Signs Nursing Vital Signs: Initial Vital Signs Pulse Rate 98 H 06/13/20 21:09 Respiratory Rate 18 06/13/20 21:09 Blood Pressure 162/125 06/13/20 21:09 O2 Sat by Pulse Oximetry 96 06/13/20 21:09 Pain Scale Pain Intensity 0 - Physical Exam General Appearance: no apparent distress, alert Eye Exam: PERRL/EOMI, eyes nml inspection Ears, Nose, Throat Exam: normal ENT inspection, TMs normal, pharynx normal, moist mucous membranes Neck Exam: normal inspection, non-tender, supple, full range of motion Respiratory Exam: normal breath sounds, lungs clear, No respiratory distress Cardiovascular Exam: regular rate/rhythm, normal heart sounds, normal peripheral pulses Gastrointestinal/Abdomen Exam: soft, normal bowel sounds, No tenderness, No mass Back Exam: normal inspection, normal range of motion, No CVA tenderness, No vertebral tenderness Extremity Exam: normal inspection, normal range of motion, pelvis stable, swelling, other (2+ pitting edema just above his sock line. Likely due to compression from his socks. Homans sign negative bilaterally. ) Neurologic Exam: alert, oriented x 3, cooperative, normal mood/affect, nml cerebellar function, nml station & gait, sensation nml, No motor deficits Skin Exam: normal color, warm, dry, No rash Lymphatic Exam: No adenopathy SpO2 Interpretation: normal SpO2: 96 O2 Delivery: Room Air - Course Nursing assessment & vital signs reviewed: Yes EKG Interpreted by Me: RATE (98), Sinus Rhythm, NORMAL AXIS, NORMAL INTERVALS - CT Exams Chest CT Interpretation: Tele-radiologist Report (Negative for pulmonary embolus or airspace infiltrate) Abdomen/Pelvis CT Interpretation: Tele-radiologist Report (Negative for acute inflammatory process in the abdomen or pelvis. Left kidney cyst and negative for follow-up advised. Constipation cholelithiasis.) Ordered Tests: Active Orders 24 hr Category Date Time Status Floor Winder STAT Care 06/13/20 21:14 Active EKG-ER Only STAT Care 06/13/20 21:11 Active IV Insertion STAT Care 06/13/20 21:11 Active Pulse Oximetry (ED) STAT Care 06/13/20 21:11 Active ABDOMEN AND PELVIS W CONTRAST [CT] Stat Exams 06/13/20 21:52 Taken CHEST 1 VIEW (PORTABLE) Stat Exams 06/13/20 21:14 Taken CHEST WITH CONTRAST [CT] Stat Exams 06/13/20 21:52 Taken CBC W DIFF Stat Lab 06/13/20 21:25 Completed CMP Stat Lab 06/13/20 21:25 Completed D-DIMER QUANTITATIVE Stat Lab 06/13/20 21:25 Completed LIPASE Stat Lab 06/13/20 21:25 Completed MAGNESIUM Stat Lab 06/13/20 21:25 Completed NT PRO BNP Stat Lab 06/13/20 21:25 Completed TROPONIN Q3H Lab 06/13/20 21:25 Completed TROPONIN Q3H Lab 06/14/20 00:38 Completed TROPONIN Q3H Lab 06/14/20 03:15 Ordered TROPONIN Q3H Lab 06/14/20 06:15 Ordered TROPONIN Q3H Lab 06/14/20 09:15 Ordered Transfer Order Routine Transfer 06/14/20 Ordered Medication Summary Discontinued Medications Generic Name Dose Route Start Last Admin Trade Name Freq PRN Reason Stop Dose Admin Aspirin 324 mg 06/14/20 01:32 Baby Aspirin 81 Mg Chew PO 06/14/20 01:33 STAT ONE Nitroglycerin 1 gm 06/14/20 01:33 Nitro-Bid 2% Ud Packets TOP 06/14/20 01:34 STAT ONE Lab/Rad Data: Laboratory Result Diagrams 06/13/20 21:25 06/13/20 21:25 Laboratory Results 06/14/20 06/13/20 06/13/20 Range/Units 00:38 21:25 21:25 WBC (4.0-10.5) K/mm3 RBC (4.1-5.6) M/mm3 Hgb (12.5-18.0) gm/dl Hct (42-50) % MCV (78-100) fl MCH (26-32) pg MCHC (32-36) g/dl RDW (11.5-14.0) % Plt Count (150-450) K/mm3 MPV (7.5-11.0) fl Gran % (36.0-66.0) % Eos # (Auto) (0-0.5) Absolute Lymphs (auto) (1.0-4.6) Absolute Monos (auto) (0.0-1.3) Lymphocytes % (24.0-44.0) % Monocytes % (0.0-12.0) % Eosinophils % (0.00-5.0) % Basophils % (0.0-0.4) % Absolute Granulocytes (1.4-6.9) Basophils # (0-0.4) D-Dimer 644 H* (215-500) ng/mL Sodium (137-145) mmol/L Potassium (3.5-5.1) mmol/L Chloride (98-107) mmol/L Carbon Dioxide (22-30) mmol/L Anion Gap (5-15) MEQ/L BUN (9-20) mg/dL Creatinine (0.66-1.25) mg/dL Estimated GFR ML/MIN Glucose (74-106) mg/dL Calcium (8.4-10.2) mg/dL Magnesium (1.6-2.3) mg/dL Total Bilirubin (0.2-1.3) mg/dL AST (17-59) U/L ALT (0-50) U/L Alkaline Phosphatase (38-126) U/L Troponin I < 0.012 < 0.012 (0.000-0.034) ng/mL NT-Pro-B Natriuret Pep (0-900) pg/mL Serum Total Protein (6.3-8.2) g/dL Albumin (3.5-5.0) g/dL Lipase (23-300) U/L Urine Opiates Level (NEGATIVE) Ur Methadone (NEGATIVE) Urine Barbiturates (NEGATIVE) Ur Phencyclidine (PCP) (NEGATIVE) Urine Amphetamine (NEGATIVE) U Benzodiazepine Level (NEGATIVE) Urine Cocaine (NEGATIVE) Urine Marijuana (THC) (NEGATIVE) 06/13/20 06/13/20 06/13/20 Range/Units 21:25 21:25 00:24 WBC 10.0 (4.0-10.5) K/mm3 RBC 4.97 (4.1-5.6) M/mm3 Hgb 13.9 (12.5-18.0) gm/dl Hct 42.1 (42-50) % MCV 84.7 (78-100) fl MCH 28.0 (26-32) pg MCHC 33.0 (32-36) g/dl RDW 13.1 (11.5-14.0) % Plt Count 314 (150-450) K/mm3 MPV 9.3 (7.5-11.0) fl Gran % 62.8 (36.0-66.0) % Eos # (Auto) 0.68 H (0-0.5) Absolute Lymphs (auto) 2.42 (1.0-4.6) Absolute Monos (auto) 0.54 (0.0-1.3) Lymphocytes % 24.2 (24.0-44.0) % Monocytes % 5.4 (0.0-12.0) % Eosinophils % 6.8 H (0.00-5.0) % Basophils % 0.8 (0.0-0.4) % Absolute Granulocytes 6.30 (1.4-6.9) Basophils # 0.08 (0-0.4) D-Dimer (215-500) ng/mL Sodium 137 (137-145) mmol/L Potassium 4.0 (3.5-5.1) mmol/L Chloride 104 (98-107) mmol/L Carbon Dioxide 27 (22-30) mmol/L Anion Gap 10.5 (5-15) MEQ/L BUN 24 H (9-20) mg/dL Creatinine 1.23 (0.66-1.25) mg/dL Estimated GFR > 60.0 ML/MIN Glucose 132 H (74-106) mg/dL Calcium 9.5 (8.4-10.2) mg/dL Magnesium 1.9 (1.6-2.3) mg/dL Total Bilirubin 0.20 (0.2-1.3) mg/dL AST 34 (17-59) U/L ALT 45 (0-50) U/L Alkaline Phosphatase 76 (38-126) U/L Troponin I (0.000-0.034) ng/mL NT-Pro-B Natriuret Pep 54.4 (0-900) pg/mL Serum Total Protein 7.0 (6.3-8.2) g/dL Albumin 4.0 (3.5-5.0) g/dL Lipase 394 H (23-300) U/L Urine Opiates Level NEGATIVE (NEGATIVE) Ur Methadone NEGATIVE (NEGATIVE) Urine Barbiturates NEGATIVE (NEGATIVE) Ur Phencyclidine (PCP) NEGATIVE (NEGATIVE) Urine Amphetamine POSITIVE (NEGATIVE) U Benzodiazepine Level NEGATIVE (NEGATIVE) Urine Cocaine NEGATIVE (NEGATIVE) Urine Marijuana (THC) POSITIVE (NEGATIVE) - Progress Progress: improved Progress Note: 06/14/20 01:35 Patient states he had a cardiac cath about 5 years ago. He was told he had 40% blockage. Patient's current symptoms occur with exertion. He experiences chest pain radiating to his left arm while working. Troponin negative x2. Case dis cussed with Dr. Monroy covering Dr. Perkins. We will admit patient to Dr. Perkins's service. Aspirin administered. Nitroglycerin administered. Plan of care discussed with patient. He agrees to admission to [facility] for further evaluation and treatment. Discussed with : Danelle Counseled pt/family regarding: diagnosis, need for follow-up, rad results - Departure Departure Disposition: Observation Clinical Impression: Cholelithiases, Kidney cysts, Constipation, ACS (acute coronary syndrome), Substance abuse Condition: Stable Critical Care Time: No Referrals: WENDI PERKINS MD [Primary Care Provider] -
[2020-06-13 21:33] LABS: BASOPHIL % 0.8 % (0.0-0.4); Basophil (Absolute #) 0.08 (0-0.4); Eosinophil % 6.8 % (0.00-5.0); Eosinophil (Absolute #) 0.68 (0-0.5); Hematocrit 42.1 % (42-50); Hemoglobin 13.9 gm/dl (12.5-18.0); Lymphocyte (Absolute #) 2.42 (1.0-4.6); Lymphocytes % 24.2 % (24.0-44.0); Mean Cell Volume 84.7 fl (78-100); Mean Platelet Volume 9.3 fl (7.5-11.0); Monocyte (Absolute #) 0.54 (0.0-1.3); Monocytes % 5.4 % (0.0-12.0); Neutrophil % 62.8 % (36.0-66.0); Platelet Count 314 K/mm3 (150-450); Red Blood Count 4.97 M/mm3 (4.1-5.6); Red Cell Distribution Width 13.1 % (11.5-14.0)
[2020-06-13 22:09] LABS: ALKALINE PHOSPHATASE 76 U/L (38-126); ANION GAP 10.5 MEQ/L (5-15); BLOOD UREA NITROGEN 24 mg/dL (9-20); CHLORIDE 104 mmol/L (98-107); Calcium 9.5 mg/dL (8.4-10.2); Carbon Dioxide 27 mmol/L (22-30); Creatinine 1 1.23 mg/dL (0.66-1.25); EST GLOMERULAR FILTRATION RATE > 60.0 ML/MIN; Glucose 132 mg/dL (74-106); LIPASE 394 U/L (23-300); MAGNESIUM 1.9 mg/dL (1.6-2.3); NT PRO BNP 54.4 pg/mL (0-900); SGOT/AST 34 U/L (17-59); SGPT/ALT 45 U/L (0-50); SODIUM 137 mmol/L (137-145)
[2020-06-14 00:43] LABS: Barbiturate,Urine NEGATIVE (NEGATIVE); Benzodiazepine,Urine NEGATIVE (NEGATIVE); Cocaine,Urine NEGATIVE (NEGATIVE); Methadone,Urine NEGATIVE (NEGATIVE); Opiate,Urine NEGATIVE (NEGATIVE); PCP,Urine NEGATIVE (NEGATIVE); THC,Urine POSITIVE (NEGATIVE)
[2020-06-14 01:06] LABS: Amphetamine,Urine POSITIVE (NEGATIVE)
[2020-06-14] MEDS ORDERED: NITRO-BID 2% UD PACKETS ONE (01:37)
[2020-06-14] MEDS ORDERED: BABY ASPIRIN 81 MG CHEW ONE (01:37)
[2020-06-14] MEDS: BABY ASPIRIN 81 MG CHEW PO ONE (01:39)
[2020-06-14] MEDS: NITRO-BID 2% UD PACKETS TOP ONE (01:40)
[2020-06-14] MEDS ORDERED: MAALOX ES 30 ML UNIT DOSE PO PRN (02:25)
[2020-06-14] MEDS ORDERED: TYLENOL 325 MG PO PRN (02:25)
[2020-06-14] MEDS ORDERED: Senokot-S Tablet PO PRN (02:25)
[2020-06-14] MEDS ORDERED: MILK OF MAGNESIA 30 ML PO PRN (02:25)
[2020-06-14] MEDS ORDERED: Zofran 4 MG/2 ML VIAL IV PRN (02:25)
[2020-06-14 02:43] VITALS: O2SAT 95
[2020-06-14] MEDS: Apresoline 25 MG TABLET PO PRN (03:27)
[2020-06-14 04:37] VITALS: BP 131/69; PULSE 79
[2020-06-14] MEDS ORDERED: Apresoline 25 MG TABLET PO PRN (06:15)
--- NOTE | 2020-06-14 09:18 | XRAY ---
Indication: Chest pain. Elevated d-dimer. Multiple contiguous axial images obtained through the chest using 100 cc Isovue 370 contrast and PE protocol. Comparison: None There is good opacification of the pulmonary arteries to include the lobar and segmental branches. However minimal respiration artifact limits evaluation for pulmonary embolus. No obvious pulmonary embolus. Heart is not enlarged. Aorta is normal in course and caliber. No pathologic mediastinal/hilar lymphadenopathy. Distal esophagus demonstrates circumferential wall thickening, possible reflux esophagitis. Lungs are inflated with small inferior right upper lobe calcified granuloma. No suspicious pulmonary mass, infiltrate, or effusion. Bony thorax intact. CT abdomen/pelvis reported separately. Impression: 1. Minimal respiration artifact. Negative for pulmonary embolus or acute cardiopulmonary abnormalities. 2. Distal esophageal wall thickening. Rule out reflux esophagitis. 3. Incidental right upper lobe calcified granuloma. Comment: Preliminary interpretation was made by [facility]. No critical discrepancy.
--- NOTE | 2020-06-14 09:22 | XRAY ---
Indication: Abdomen pain. Multiple contiguous axial images obtained through the abdomen and pelvis using 100 cc Isovue 370 contrast. Comparison: June 30, 2017. Study is degraded by respiration/motion artifact throughout. CT chest reported separately. Noncontrasted stomach and bowel loops appear nonobstructed. There is now moderate diffuse scattered colonic fecal debris throughout. No free fluid/air. Stable tiny gallstone and small left renal cyst. Remaining liver, gallbladder, pancreas, spleen, adrenal glands, kidneys, ureters, bladder, and aorta appear grossly unremarkable. Osseous structures grossly intact. Impression: 1. Limited exam due to respiration/motion artifact. 2. New diffuse fecal stasis. 3. Again incidental tiny gallstone and small left renal cyst. Comment: Preliminary interpretation was made by [facility]. No critical discrepancy.
--- NOTE | 2020-06-14 09:24 | XRAY ---
Indication: Chest pain. Comparison: March 07, 2018. Portable chest again demonstrates normal heart and lungs with right mid lung calcified granuloma. Bony thorax intact again with mild degenerative changes and left humeral neck enchondroma. No new/acute findings.
== END 2020-06-14 05:58 | disposition left against medical advice (07) ==
LOC: ED 21:00 → MED SURG 06-14 02:21
PROVIDERS: ADMIT Family Medicine; ATTEND Family Medicine
DX: R07.9 Chest pain, unspecified (principal); Z79.899 Other long term (current) drug therapy; R51.9 Headache, unspecified; R50.9 Fever, unspecified; R53.83 Other fatigue; I10 Essential (primary) hypertension; E78.00 Pure hypercholesterolemia, unspecified; I25.10 Atherosclerotic heart disease of native coronary artery without angina pectoris; F19.10 Other psychoactive substance abuse, uncomplicated; R10.30 Lower abdominal pain, unspecified; M25.512 Pain in left shoulder
CPT/HCPCS: 36000; 36415; 71045; 71260; 74177; 80053; 80307; 83690; 83735; 83880; 84484; 85025; 85379; 93005; 93041; 93268; 94760; 99284; G0378; A9270-GY